=== PATIENT | male | born 2005 | race Caucasian/White ===

== ENCOUNTER 2025-02-28 22:56 | Emergency (ER) | payer MEDICAID ==
[~2025-02-28] VITALS: Ht 167.6 cm; Wt 60.0 kg
[2025-02-28 23:08] VITALS: O2SAT 98
[2025-03-01] MEDS: TETANUS, DIPHTHERIA, PERTUSSIS VAC/PF 0.5ML (>10YR OLD) IM ONE (00:27)
[2025-03-01] MEDS: LIDOCAINE HCL 1% 20ML VIAL INFIL ONE (00:30)
[2025-03-01 01:14] VITALS: BP 119/71; PULSE 58; RESP 18; TEMP 36.8; O2SAT 100
== END 2025-03-01 01:15 | disposition home or self-care (01) ==
LOC: ER 22:56
DX: S61.412A Laceration without foreign body of left hand, initial encounter (principal); W26.0XXA Contact with knife, initial encounter; Y93.89 Activity, other specified; Y92.89 Other specified places as the place of occurrence of the external cause; Y99.8 Other external cause status
CPT/HCPCS: 99283; 12002; 90715; 90471; J2003

== ENCOUNTER 2025-03-10 16:34 | Emergency (ER) | payer MEDICAID ==
[~2025-03-10] VITALS: Ht 167.6 cm; Wt 59.0 kg
[2025-03-10 16:45] VITALS: O2SAT 100
[2025-03-10] MEDS ORDERED: BO1 TP (16:52)
[2025-03-10] MEDS ORDERED: CEPH500C2 MT (17:20)
[2025-03-10 17:33] VITALS: BP 112/71; PULSE 88; RESP 16; TEMP 36.7; O2SAT 100
== END 2025-03-10 17:34 | disposition home or self-care (01) ==
LOC: ER 16:34
DX: S61.218D Laceration without foreign body of other finger without damage to nail, subsequent encounter (principal); X58.XXXD Exposure to other specified factors, subsequent encounter
CPT/HCPCS: 99283